=== PATIENT | male | born 1970 | race Caucasian/White ===

== ENCOUNTER 2019-09-11 08:00 | Outpatient (CLI) | payer OTHER ==
[~2019-09-11 08:00] MED LIST: MULTI-DAY VITAM1 TAB PO; OMEPRAZOLE40 MG PO; ULTRAM50 MG PO
[2019-09-11 11:45] LABS: BASOPHILS 0.5 % (0-2); EOSINOPHILS 2.7 % (0-7); HEMATOCRIT 43.4 % (42.0-54.0); HEMOGLOBIN 15.3 g/dL (13.5-17.5); IMMATURE GRANULOCYTES 0.4 % (0-5); LYMPHOCYTES 37.3 % (15-50); MCH 31.4 pg (26.0-34.0); MCHC 35.3 g/dL (31.0-37.0); MCV 88.9 fL (80.0-100.0); MEAN PLATELET VOLUME 9.9 fL (7.4-10.4); MONOCYTES 8.7 % (2-11); NEUTROPHILS 50.4 % (40-80); RBC 4.88 10x6/uL (4.20-6.10); RDW 13.8 % (11.5-14.5); WBC 9.9 10x3/uL (4.8-10.8)
[2019-09-11 11:49] LABS: BILIRUBIN NEGATIVE (NEGATIVE); GLUCOSE NEGATIVE (NEGATIVE); KETONE NEGATIVE (NEGATIVE); NITRITE NEGATIVE (NEGATIVE); PLATELET COUNT 241 10x3/uL (130-400); UROBILINOGEN NORMAL (NORMAL)
[2019-09-11 11:55] LABS: APTT 31.3 SECONDS (22.8-39.4); INR 0.85 (0.85-1.17); PROTIME 11.7 SECONDS (11.6-15.0)
[2019-09-11 12:03] LABS: CALC OSMOLALITY 277 mosm/kg (275-300); CARBON DIOXIDE 27.4 mmol/L (21.0-32.0); CHLORIDE - SERUM 102 mmol/L (98-107); CREATININE - SERUM 1.1 mg/dL (0.6-1.3); GLUCOSE 100 mg/dL (74-106); POTASSIUM - SERUM 4.3 mmol/L (3.5-5.1); SODIUM 137 mmol/L (136-145); UREA NITROGEN 24 mg/dL (7-18); eGFR NON AFRICAN AMERICAN 75 mL/min (90-120)
== END 2019-09-11 08:01 | disposition home or self-care (01) ==
LOC: D.PAN 08:00 → D.SDCHOLD 09-17 09:35 → EDSTATUS 09-17 10:00 → D.PAN 09-17 10:00 → D.SDCHOLD 09-17 10:00 → D.PAN 10-24 10:00
PROVIDERS: ATTEND Orthopaedic Surgery
DX: M17.12 Unilateral primary osteoarthritis, left knee (principal)

== ENCOUNTER 2019-10-31 08:00 | Inpatient (IN) | payer OTHER ==
[~2019-10-31] VITALS: Ht 188 cm; Wt 106.8 kg
[2019-12-12] MEDS ORDERED: BYSTOLIC20 MG PO (09:14)
[2019-12-12 09:46] LABS: HEMOGLOBIN 15.4 g/dL (13.5-17.5); LYMPHOCYTES 35.4 % (15-50); MCH 30.6 pg (26.0-34.0); MCV 87.5 fL (80.0-100.0); MEAN PLATELET VOLUME 10.3 fL (7.4-10.4); NEUTROPHILS 55.7 % (40-80); PLATELET COUNT 203 10x3/uL (130-400); RBC 5.03 10x6/uL (4.20-6.10); RDW 13.6 % (11.5-14.5); WBC 6.5 10x3/uL (4.8-10.8)
[2019-12-12 09:53] LABS: CALC OSMOLALITY 277 mosm/kg (275-300); CARBON DIOXIDE 29.7 mmol/L (21.0-32.0); CHLORIDE - SERUM 106 mmol/L (98-107); CREATININE - SERUM 1.1 mg/dL (0.6-1.3); GLUCOSE 114 mg/dL (74-106); POTASSIUM - SERUM 4.1 mmol/L (3.5-5.1); SODIUM 139 mmol/L (136-145); UREA NITROGEN 10 mg/dL (7-18); eGFR NON AFRICAN AMERICAN 75 mL/min (90-120)
[2019-12-12 09:54] LABS: APTT 31.8 SECONDS (22.8-39.4); INR 0.89 (0.85-1.17); PROTIME 12.1 SECONDS (11.6-15.0)
[2019-12-17] VITALS (13 sets, daily range): BP systolic 116–156; BP diastolic 65–96; Ht 188 cm; Wt 106.8 kg
[2019-12-17] MEDS ORDERED: ACETAMINOPHEN500 M1 PO (06:18)
--- NOTE | 2019-12-17 08:05 | NUR ---
PLASMA BLADES USED. SETTING ON 12/08. AQUAMANIS USED SETTING ON 170. CAUTERY PAD LOT# [id number] EXP. 12/22/2019
--- NOTE | 2019-12-17 10:45 | NUR ---
RECEIVED FROM SURGERY. LEFT TOTAL KNEE DONE. DRESSING TO LEFT KNEE CDI. VITAL SIGNS STABLE. NO COMPLAINTS OF PAIN OR DISCOMFORT. DENIES ANY NEEDS AT THIS TIME. WILL CONTINUE TO MONITOR.
[2019-12-17 20:06] LABS: BILIRUBIN NEGATIVE (NEGATIVE); GLUCOSE NEGATIVE (NEGATIVE); KETONE NEGATIVE (NEGATIVE); NITRITE NEGATIVE (NEGATIVE); SPECIFIC GRAVITY 1.015 (1.005-1.020); UROBILINOGEN NORMAL (NORMAL)
--- NOTE | 2019-12-17 20:24 | OP ---
PATIENT NAME: ROMÁN THOMPSON MEDICAL RECORD: [id number] :68 LOCATION:D. D.1204 ADMISSION DATE:12/17/19 SURGEON: ROMÁN STILL DO DATE OF OPERATION: 12/17/2019 PROCEDURE PERFORMED: Left total knee arthroplasty. PREOPERATIVE DIAGNOSIS: Left knee osteoarthritis. POSTOPERATIVE DIAGNOSIS: Left knee osteoarthritis. INDICATIONS: Mr. Thompson is a 49-year-old male who has had injections and all manner of nonoperative treatment conservatively for his left knee. He got to the point where he could not deal with the pain anymore and is affecting his activities of daily living. He wants something done surgically. On x-ray, he had vghj-gi-biic arthritis in the medial compartment and severe osteophytes noted on the patellofemoral joint. I informed him of the risks including infection, bleeding, damage to nerves or vessels, need for further surgery, fracture, bleeding, failure of implant, blood clots, and even and he signed the consent. SURGEON: Román Still DO DESCRIPTION OF PROCEDURE: The patient received a block by anesthesia in the preoperative area. He was taken to the operative suite in supine position, given general anesthetic, given 2 grams Ancef, 80 mg of gentamicin and a gram of TXA. He was then sedated and LMA was placed. The left lower extremity was then prepped and draped in sterile fashion. A time-out was performed, everyone was in agreeance with the correct side, site, patient and procedure. We then began by marking out the incision and covered with Ioban. I then began with a 10-blade scalpel. Careful dissection made down to the capsule. A fresh 10-blade was used to make the medial parapatellar approach through the capsule and part of fat pad was removed. The patella was exposed and the patella was milled down from the implant. Once that was completed, the knee was flexed up and the intramedullary canal was entered with the drill and then the distal femur guide was put into the canal. The distal femur was then cut as well as the proximal tibia as it was exposed after the ACL was removed. Once the proximal tibia was cut, the menisci were removed and the bleeding was coagulated with Aquamantys. A 10 extension block fit well. The knee was then flexed up and measured to be a 67.5. The anterior and posterior cuts were made through the 4-in-1 cutting block. We then trialled a 67.5 and it fit very well and floated in the tibia and ranged it, marked the rotation. Once rotation was marked, the tray was removed, lug holes were drilled on the femur and patella holes were drilled for the patella. I then exposed the tibia and sized it to be 79. This was reamed and punched. An extra hole was put on the tibia. Cement was then mixed. After that, the tibia was irrigated and the cement was mixed and put in the tibia and on the implant, impacted in place. Excess cement was removed. The femur was then impacted on. A 10-poly was put in between and brought to extension and the patella was cleaned out. Cement was put on it and on the implant, squeezed into place. Excess cement was removed. We then used a 10% povidone iodine solution with 500 mL of normal saline in the knee and let it sit for 3 minutes. This was then irrigated out with more than a liter normal saline, vancomycin powder was placed in the wound as well as Randy powder. He was given another gram of TXA. The capsule on the skin was then closed by Carmelo Silva, certified surgical first leveler. The capsule was closed with #1 OPERATIVE REPORT [id number] ROMÁN THOMPSON pop-off, Vicryls and a synteq-fg-lgncv fashion and 2-0 Vicryl in inverted interrupted fashion on the skin and then ZipLine was placed on each. He was then dressed with Adaptic, 4 x 4s, ABD, Webril and Kareem wrap from the toes up to the knee. He was then awakened and taken to recovery in stable condition. Blood loss was approximately 200 mL. COMPLICATIONS: None. We did trial a 12-poly and it fit very well. We used the 12-anterior stabilized poly, this was placed and then locked into place with a locking mechanism prior to putting the vancomycin and Randy powder and prior to closure. TRANSINT:[id number] Voice Confirmation ID: [id number] DOCUMENT ID: [id number] ROMÁN STILL DO at 2024 CC: [id number] DICTATION DATE: 12/17/19 1021 DELIVERY PERSON: 12/17/19 1640 ADM IN [facility] [address] [place] [address]
--- NOTE | 2019-12-17 22:49 | NUR ---
PLACED PATIENT ON CPM MACHINE TO LEFT KNEE. MARKED DRAINAGE ON THE FRONT AND BACK OF PATIENT'S DRESSING. ASSESSMENT COMPLETED. PATIENT DENIES OTHER NEEDS AT THIS TIME. BED IN LOWEST POSITION AND CALL LIGHT WITHIN REACH. ENCOURAGED THE PATIENT TO CALL IF HE HAS NEEDS. WILL CONTINUE TO MONITOR.
[2019-12-18] VITALS: BP 132/66
--- NOTE | 2019-12-18 02:29 | NUR ---
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
[2019-12-18 05:32] VITALS: BP 117/56
--- NOTE | 2019-12-18 05:32 | NUR ---
PT RESTING WITH EYES CLOSED, AROUSES TO SOFT VERBAL STIMUALTION, VS OBTAINED, ADM ANCEF IVPB AND PROTONIX PO PER MD ORDERS, SEE EMAR, PT PLACED ON CPM MACHING AT THIS TIME, REQUESTED AND SERVED COFFEE, DENIES FURTHER NEEDS
--- NOTE | 2019-12-18 06:58 | NUR ---
ADM PAIN MED PER MD ORDERS, SEE EMAR, PT REQUESTED AND SERVED FRESH COFFEE, DENIES FURTHER NEEDS
[2019-12-18 07:05] LABS: ANION GAP 11.5 mmol/L (8-16); BASOPHILS 0.3 % (0-2); CALCIUM 8.2 mg/dL (8.5-10.1); CARBON DIOXIDE 25.8 mmol/L (21.0-32.0); CREATININE - SERUM 1.2 mg/dL (0.6-1.3); EOSINOPHILS 0.5 % (0-7); HEMATOCRIT 36.9 % (42.0-54.0); HEMOGLOBIN 12.4 g/dL (13.5-17.5); IMMATURE GRANULOCYTES 0.1 % (0-5); LYMPHOCYTES 24.8 % (15-50); MAGNESIUM - SERUM 1.9 mg/dL (1.8-2.4); MCH 30.4 pg (26.0-34.0); MCHC 33.6 g/dL (31.0-37.0); MCV 90.4 fL (80.0-100.0); MONOCYTES 10.4 % (2-11); NEUTROPHILS 63.9 % (40-80); PHOSPHOROUS 2.6 mg/dL (2.5-4.9); PLATELET COUNT 169 10x3/uL (130-400); POTASSIUM - SERUM 3.3 mmol/L (3.5-5.1); RBC 4.08 10x6/uL (4.20-6.10); RDW 14.2 % (11.5-14.5); WBC 7.6 10x3/uL (4.8-10.8)
--- NOTE | 2019-12-18 08:13 | NUR ---
PT IV FINISHED DISCONNECTED, USED ALCOHOL PINON, NO IV ISSUES NOTED PT EATING BREAKSAST, CPM REMOVED WILL CHANGE L KNEE BANDAGE AFTER BREAKFAST AT DR. STILL'S ORDERS
--- NOTE | 2019-12-18 09:29 | NUR ---
NICOTINE PATCH RT SHOULDER, PRN OXY 10 GIVEN
[2019-12-18 11:44] VITALS: BP 121/66
[2019-12-18 13:35] VITALS: BP 103/74
--- NOTE | 2019-12-18 15:53 | NUR ---
PT BANDAGE CHANGED PER DR STILL'S ORDERS, CLEANED AND 7 DAY DRSG APPLIED, WOUND LOOKS TO BE ADHERING WELL, COMPLETE BED CHANGE DONE
--- NOTE | 2019-12-18 18:54 | MORECARE ---
CASE MANAGEMENT DISCHARGE SUMMARY PATIENT: WILMA RHODES UNIT: [id number] ADM DATE: 12/17/19 AGE: 49 : [birth year] SEX: M ROOM/BED: D.1204 AUTHOR: ROSAS LYNCH PHYSICIAN: REFERRING PHYSICIAN: WILMA STILL DO DATE OF SERVICE: 12/18/19 Discharge Plan Patient Name: WILMA RHODES Facility: [facility]:[place] : 1970 Planned Disposition: Outpatient PT\OT Anticipated Discharge Date: 12/20/19 Discharge Date: Expected LOS: 3 Initial Reviewer: [email or web address] Initial Review Date: 12/17/2019 Generated: 12/18/19 7:54 pm Comments DCP- Discharge Planning Updated by [email or web address]: Beata Love on 12/18/19 5:[address] DC Plans: OP Therapy @[facility]. CM met with the patient and his , regarding DC plans/needs. Patient states that he lives independently with his , Beulah #[phone]. Patient states he has 1 step to enter the home. PCP: Tish Abraham APRN. Pharmacy: [facility].DME: CPM, 2 wheeled walker, [facility] ice machine. Patient states he has a built in bench in the shower. Denies the use of community resources. Patient states that he can safely return to his home, with his . CM discussed Rehab, SNF, OP Therapy or HHS. Patient's choice signed for [facility]AD[facility]OCK[facility] ROOM ATTENDANT OP Therapy. CM will set up the OP therapy and notify nursing/patient of the time/date. Patient denies being hospitalized within the past 30 days. transportation at time of DC will be his , Beulah. CM will continue to follow PRN. Patient Name: WILMA RHODES Page [phone] at 1854 All edits/amendments must be made on the electronic document DICTATION DATE: 12/18/191853 [employer] SPECIALIST: BONIFACIO 12/18/191853 RPT#: [id number] DC DATE: STATUS: ADM IN [facility] [address] [place] [address] END OF REPORT
--- NOTE | 2019-12-18 19:01 | MORECARE ---
CASE MANAGEMENT DISCHARGE SUMMARY PATIENT: WILMA THOMPSON UNIT: [id number] ADM DATE: 12/17/19 AGE: 49 : 68 SEX: M ROOM/BED: D.1204 AUTHOR: SYED,DOC PHYSICIAN: REFERRING PHYSICIAN: WILMA STILL DO DATE OF SERVICE: 12/18/19 Discharge Plan Patient Name: WILMA THOMPSON Facility: [facility]:[place] : 1970 Planned Disposition: Outpatient PT\OT Anticipated Discharge Date: 12/20/19 Discharge Date: Expected LOS: 3 Initial Reviewer: [email or web address] Initial Review Date: 12/17/2019 Generated: 12/18/19 8:01 pm Comments DCP- Discharge Planning Updated by [email or web address]: Beata Love on 12/18/19 5:[address] DC Plans: OP Therapy @[facility]. CM met with the patient and his , regarding DC plans/needs. Patient states that he lives independently with his , Beulah #[phone]. Patient states he has 1 step to enter the home. PCP: Tish Abraham APRN. Pharmacy: [facility].DME: CPM, 2 wheeled walker, [facility] ice machine. Patient states he has a built in bench in the shower. Denies the use of community resources. Patient states that he can safely return to his home, with his . CM discussed Rehab, SNF, OP Therapy or HHS. Patient's choice signed for [facility] OP Therapy. CM will set up the OP therapy and notify nursing/patient of the time/date. Patient denies being hospitalized within the past 30 days. transportation at time of DC will be his , Buelah. CM will continue to follow PRN. DCPIA - Discharge Planning Initial Assessment Updated by [email or web address]: Beata Love on 12/18/19 6:55 pm * Is the patient Alert and Oriented? Yes * How many steps to enter\exit or inside your home? * PCP Tish Abraham APRN * Pharmacy [facility] * Preadmission Environment Home with Family * ADLs Independent * Equipment Rolling Walker * Other Equipment Walker with 2 wheels, COM, Ice machine * List name and contact numbers for known caregivers / representatives who currently or will assist patient after discharge: Beulah Thompson () [phone] * Verbal permission to speak to the caregivers and representatives has been obtained from the patient. Yes * Community resources currently utilized None * Please name any agencies selected above. [facility] OP Therapy * Additional services required to return to the preadmission environment? Yes * Can the patient safely return to the preadmission environment? Yes * Has this patient been hospitalized within the prior 30 days at any hospital? No Last DP export: 12/18/19 5:54 p Patient Name: WILMA THOMPSON Page [phone] at 1901 All edits/amendments must be made on the electronic document DICTATION DATE: 12/18/191900 CAFE SERVER: BONIFACIO 12/18/191900 RPT#: [id number] DC DATE: STATUS: ADM IN [facility] [address] [place] [address] END OF REPORT
--- NOTE | 2019-12-18 19:31 | NUR ---
PM ROUNDS MADE, INFORMED PT THAT I WILL BE BACK SHORTLY, PT VERBALIZES UNDERSTANDING, PT'S MOM AT BEDSIDE
[2019-12-18 20:50] VITALS: BP 164/89
--- NOTE | 2019-12-18 20:50 | NUR ---
ASSESSMENT PER FLOW SHEET, VS OBTAINED, SALINE LOCK INTACT, PT REPORTS FLATUS, NO BM, AND VOIDING WITH NO DIFFICULTY, USING WALKER TO THE BR INST PER PT, SCD TO RIGHT LEG AND PLEXI BOOT TO LEFT LEG, PT REFUSES CORA HOSE, DRESSING TO LEFT KNEE CDI WITH NO DRAINAGE NOTED, PT C/O LEFT KNEE PAIN, REQUESTS DILAUDID, WILL ADM, PT'S MOM AT BEDSIDE
--- NOTE | 2019-12-18 21:00 | NUR ---
SALINE LOCK FLUSHED, ADM DILAUDID DILUTED IN 8MLS OF NS, SALINE LOCK FLUSHED, ADM 2100 MEDS PO PER MD ORDERS, SEE EMAR, PT DENIES FURTHER NEEDS
--- NOTE | 2019-12-18 22:15 | NUR ---
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
--- NOTE | 2019-12-19 00:40 | NUR ---
PT AWAKE, PT HAD REMOVED HIS KIRSTEN WRAP, REPORTS HE JUST WANTED IT OFF FOR A BIT, LEFT KNEE REWRAPPED, PT INQUIRES ABOUT HAVING HIS "PAIN SHOT", INFORMED PT THAT I WILL CHECK ON IT TO MAKE SURE WE CAN STILL CONTINUE IV DILAUDID SINCE HE WAS TAKING PO PAIN MED NOW, PT VERBALIZES UNDERSTANDING, STATES "I UNDERSTAND, I'M REALLY OK RIGHT NOW", PT DENIES FURTHER NEEDS, SCD AND PLEXI PULSE ON AND WORKING PROPERLY, PT'S MOM AT BEDSIDE
--- NOTE | 2019-12-19 02:18 | NUR ---
PT ADVANCED PRACTICE PROVIDER LIGHT, C/O LEFT KNEE PAIN, ADM OXY IR PER MD ORDERS, SEE EMAR, PT DENIES FURTHER NEEDS
[2019-12-19 04:30] VITALS: BP 139/98
--- NOTE | 2019-12-19 04:30 | NUR ---
PT AWAKE, VS OBTAINED, REQUESTED AND SERVED COFFEE
--- NOTE | 2019-12-19 05:10 | NUR ---
SPOKE TO LAZARA MARTINEZ, SUPERVISOR MODEL MAKING REGARDING ADMINISTRATION OF DILAUDID AND OXY IR, REPORTS THAT I CAN ADM THE DILAUDID IV AND THEN THE OXY IR PO WHEN DUE EVEN THOUGH IT WILL BE JUST AN HOUR LATER
--- NOTE | 2019-12-19 05:14 | NUR ---
SALINE LOCK FLUSHED, ADM DILAUDID DILUTED IN NS SIVP PER MD ORDERS, SEE EMAR, SALINE LOCK FLUSHED
[2019-12-19 06:39] LABS: CALCIUM 8.2 mg/dL (8.5-10.1); CARBON DIOXIDE 26.5 mmol/L (21.0-32.0); CHLORIDE - SERUM 103 mmol/L (98-107); MAGNESIUM - SERUM 1.9 mg/dL (1.8-2.4); PHOSPHOROUS 3.2 mg/dL (2.5-4.9); SODIUM 137 mmol/L (136-145); UREA NITROGEN 13 mg/dL (7-18); eGFR NON AFRICAN AMERICAN 84 mL/min (90-120)
--- NOTE | 2019-12-19 06:39 | NUR ---
ADM OXY IR AND VISTARIL PO PER MD ORDERS, SEE EMAR WITH FRESH H20
[2019-12-19 06:40] LABS: CALC OSMOLALITY 273 mosm/kg (275-300); GLUCOSE 98 mg/dL (74-106); POTASSIUM - SERUM 3.9 mmol/L (3.5-5.1)
--- NOTE | 2019-12-19 06:50 | NUR ---
PT PLACED ON CPM AT THIS TIME
[2019-12-19] MEDS ORDERED: oxyCODONE IR PO (07:22)
[2019-12-19] MEDS ORDERED: ELIQUIS2.5 MG PO (07:22)
[2019-12-19] MEDS ORDERED: VISTARIL50 MG PO (07:23)
[2019-12-19] MEDS ORDERED: KEFLEX500 MG PO (07:23)
[2019-12-19 07:32] LABS: BASOPHILS 0.8 % (0-2); EOSINOPHILS 1.2 % (0-7); HEMATOCRIT 39.2 % (42.0-54.0); HEMOGLOBIN 13.1 g/dL (13.5-17.5); IMMATURE GRANULOCYTES 0.3 % (0-5); LYMPHOCYTES 27.9 % (15-50); MCH 30.3 pg (26.0-34.0); MCHC 33.4 g/dL (31.0-37.0); MCV 90.7 fL (80.0-100.0); MEAN PLATELET VOLUME 11.5 fL (7.4-10.4); MONOCYTES 11.7 % (2-11); NEUTROPHILS 58.1 % (40-80); PLATELET COUNT 169 10x3/uL (130-400); RBC 4.32 10x6/uL (4.20-6.10); RDW 14.3 % (11.5-14.5); WBC 7.8 10x3/uL (4.8-10.8)
[2019-12-19 07:35] VITALS: BP 147/88
--- NOTE | 2019-12-19 07:35 | NUR ---
PT IS RESTING IN BED WITH EYES OPEN. RESPIRATIONS ARE EVEN AND UNLABORED. PT IS AAO X 4. CPM ON LEFT KNEE AND WORKING WITHOUT DIFFICULTY. DRESSING TO LEFT KNEE NOTED AND IS CDI. PT DENIES PRESENCE OF NUMBNESS/TINGLING TO LLE. INCENTIVE SPIROMETER AT BEDSIDE. PT GIVES APPROPRIATE DEMONSTRATION OF INCENTIVE SPIROMETER USE AND IS ENCOURAGED TO USE INCENTIVE SPIROMETER. FAMILY IS AT BEDSIDE. PIV TO RIGHT FA REMOVED DUE TO REDNESS/TENDERNESS. CATHETER TIP INTACT. DRESSING APPLIED. BED IS IN THE LOWEST POSITION. CALL LIGHT AND BEDSIDE TABLE ARE WITHIN REACH. SIDE RAILS X 2. PT AND PT FAMILY MEMBERS DENY FURTHER NEEDS. WILL CONT TO MONITOR.
--- NOTE | 2019-12-19 10:24 | MORECARE ---
CASE MANAGEMENT DISCHARGE SUMMARY PATIENT: WILMA THOMPSON UNIT: [id number] ADM DATE: 12/17/19 AGE: 49 : 68 SEX: M ROOM/BED: D.1204 AUTHOR: SYED,DOC PHYSICIAN: REFERRING PHYSICIAN: WILMA STILL DO DATE OF SERVICE: 12/19/19 Discharge Plan Patient Name: WILMA THOMPSON Facility: [facility]:[place] : 1970 Planned Disposition: Outpatient PT\OT Anticipated Discharge Date: 12/20/19 Discharge Date: Expected LOS: 3 Initial Reviewer: [email or web address] Initial Review Date: 12/17/2019 Generated: 12/19/19 11:23 am Comments DCP- Discharge Planning Updated by [email or web address]: Beata Love on 12/19/19 9:[address] [facility] OP Therapy appointment @12/19/19 @2:00 pm. Arrive @1:45 pm for paperwork. DCP- Discharge Planning Updated by [email or web address]: Beata Love on 12/18/19 5:[address] DC Plans: OP Therapy @[facility]. CM met with the patient and his , regarding DC plans/needs. Patient states that he lives independently with his , Beulah #[phone]. Patient states he has 1 step to enter the home. PCP: Tish Abraham APRN. Pharmacy: [facility].DME: CPM, 2 wheeled walker, [facility] care ice machine. Patient states he has a built in bench in the shower. Denies the use of community resources. Patient states that he can safely return to his home, with his . CM discussed Rehab, SNF, OP Therapy or HHS. Patient's choice signed for [facility]ACLE DEVELOPER OP Therapy. CM will set up the OP therapy and notify nursing/patient of the time/date. Patient denies being hospitalized within the past 30 days. transportation at time of DC will be his , Beulah. CM will continue to follow PRN. DCPIA - Discharge Planning Initial Assessment Updated by [email or web address]: Beata Love on 12/18/19 6:55 pm * Is the patient Alert and Oriented? Yes * How many steps to enter\exit or inside your home? * PCP Tish Abraham APRN * Pharmacy [facility] * Preadmission Environment Home with Family * ADLs Independent * Equipment Rolling Walker * Other Equipment Walker with 2 wheels, COM, Ice machine * List name and contact numbers for known caregivers / representatives who currently or will assist patient after discharge: Beulah Thompson () [phone] * Verbal permission to speak to the caregivers and representatives has been obtained from the patient. Yes * Community resources currently utilized None * Please name any agencies selected above. [facility] OP Therapy * Additional services required to return to the preadmission environment? Yes * Can the patient safely return to the preadmission environment? Yes * Has this patient been hospitalized within the prior 30 days at any hospital? No Last DP export: 12/18/19 6:01 p Patient Name: WILMA THOMPSON Page 16015 at 1024 All edits/amendments must be made on the electronic document DICTATION DATE: 12/19/19 1024 APPLIANCE WORKER: BONIFACIO 12/19/19 1024 RPT#: [id number] DC DATE: STATUS: ADM IN [facility] [address] [place] [address] END OF REPORT
--- NOTE | 2019-12-19 10:30 | NUR ---
ALL DISCHARGE INSTRUCTIONS COVERED WITH PT AND PT MOTHER. ALL QUESTIONS ADDRESSED. DRESSING CHANGED TO LEFT KNEE PER ORDER. (4) EXTRA DRESSINGS GIVEN TO PT PER ORDER. (4) PRINTED RX GIVEN TO PT. ALL DISCHARGE PAPERS SIGNED. PT DENIES FURTHER QUESTIONS/CONCERNS/NEEDS AT THIS TIME. WILL TRANSPORT PT FROM ROOM WHEN READY FOR TRANSPORT. ALL SIGN DISCHARGE PAPERS PLACED IN PT CHART.
--- NOTE | 2019-12-19 11:10 | NUR ---
PT TRANSPORTED FROM ROOM VIA WHEELCHAIR FOR TRANSPORTATION HOME. PT STATES THAT HE HAS ALL PERSONAL BELONGINGS. PT DENIES FURTHER QUESTIONS/CONCERNS AT THIS TIME. PT THANKS THIS NURSE FOR CARE GIVEN DURING THIS SHIFT.
--- NOTE | 2019-12-20 09:14 | MORECARE ---
CASE MANAGEMENT DISCHARGE SUMMARY PATIENT: WILMA THOMPSON UNIT: [id number] ADM DATE: 12/17/19 AGE: 49 : 68 SEX: M ROOM/BED: D.1204 AUTHOR: SYED,DOC PHYSICIAN: REFERRING PHYSICIAN: WILMA STILL DO DATE OF SERVICE: 12/20/19 Discharge Plan Patient Name: WILMA THOMPSON Facility: [facility]:[place] : 1970 Planned Disposition: Outpatient PT\OT Anticipated Discharge Date: 12/20/19 Discharge Date: 12/19/2019 Expected LOS: 3 Initial Reviewer: [email or web address] Initial Review Date: 12/17/2019 Generated: 12/20/19 10:14 am Comments DCP- Discharge Planning Updated by [email or web address]: Beata Love on 12/19/19 9:[address] [facility] OP Therapy appointment @12/19/19 @2:00 pm. Arrive @1:45 pm for paperwork. DCP- Discharge Planning Updated by [email or web address]: Beata Love on 12/18/19 5:[address] DC Plans: OP Therapy @[facility]. CM met with the patient and his , regarding DC plans/needs. Patient states that he lives independently with his , Beulah #[phone]. Patient states he has 1 step to enter the home. PCP: Tish Abraham APRN. Pharmacy: [facility].DME: CPM, 2 wheeled walker, [facility] care ice machine. Patient states he has a built in bench in the shower. Denies the use of community resources. Patient states that he can safely return to his home, with his . CM discussed Rehab, SNF, OP Therapy or HHS. 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 CM will set up the OP therapy and notify nursing/patient of the time/date. Patient denies being hospitalized within the past 30 days. transportation at time of DC will be his , Beulah. CM will continue to follow PRN. DCPIA - Discharge Planning Initial Assessment Updated by [email or web address]: Beata Love on 12/18/19 6:55 pm * Is the patient Alert and Oriented? Yes * How many steps to enter\exit or inside your home? * PCP Tish Abraham APRN * Pharmacy [facility] * Preadmission Environment Home with Family * ADLs Independent * Equipment Rolling Walker * Other Equipment Walker with 2 wheels, COM, Ice machine * List name and contact numbers for known caregivers / representatives who currently or will assist patient after discharge: Beulah Thompson () [phone] * Verbal permission to speak to the caregivers and representatives has been obtained from the patient. Yes * Community resources currently utilized None * Please name any agencies selected above. [facility] OP Therapy * Additional services required to return to the preadmission environment? Yes * Can the patient safely return to the preadmission environment? Yes * Has this patient been hospitalized within the prior 30 days at any hospital? No Last DP export: 12/19/19 9:24 a Patient Name: WILMA THOMPSON Page [id number] at 0914 All edits/amendments must be made on the electronic document DICTATION DATE: 12/20/19913 CORE OVEN TENDER: BONIFACIO 12/20/19913 RPT#: [id number] DC DATE:12/19/19 STATUS: DIS IN [facility] [address] [place] [address] END OF REPORT
== END 2019-12-19 11:22 | disposition home or self-care (01) | DRG 470 ==
LOC: D.M2 11-27 07:00 → D.M3 12-17 05:35 → D.SDCHOLD 12-17 05:35 → D.M2 12-17 07:00 → D.M3 12-17 08:54
PROVIDERS: Family Medicine; ADMIT Orthopaedic Surgery; ATTEND Orthopaedic Surgery
PROC: 0SRD0J9 Replacement of Left Knee Joint with Synthetic Substitute, Cemented, Open Approach (ICD-10-PCS; principal; 2019-12-17 07:30)
DX: M17.12 Unilateral primary osteoarthritis, left knee (principal); I10 Essential (primary) hypertension; K21.9 Gastro-esophageal reflux disease without esophagitis; F17.200 Nicotine dependence, unspecified, uncomplicated